=== PATIENT | female | born 1975 | race Caucasian/White ===

== ENCOUNTER 2024-01-30 22:25 | Emergency (ER) | payer OTHER ==
[2024-01-30] MEDS: Benzonatate 100 MG Cap PO ONE (22:56)
[2024-01-30 23:24] LABS: BASOPHILS ABSOLUTE AUTO 0.07 K/uL (0.02-0.10); BASOPHILS PERCENT AUTO 0.6 % (0.0-0.5); EOSINOPHILS ABSOLUTE AUTO 0.12 K/uL (0.04-0.40); HEMATOCRIT 42.6 % (37.0-47.0); HEMOGLOBIN 14.8 g/dL (11.5-16.5); LYMPHOCYTES ABSOLUTE AUTO 1.96 K/uL (1.50-4.00); MEAN CORPUSCULAR HEMOGLOBIN 32.9 pg (27.0-32.0); MEAN CORPUSCULAR HGB CONC 34.7 g/dL (31.0-35.0); MEAN CORPUSCULAR VOLUME 95 fL (76-96); MEAN PLATELET VOLUME 10.1 fL (6.0-10.0); MONOCYTES PERCENT AUTO 13.9 % (3.0-10.0); NEUTROPHILS ABSOLUTE AUTO 7.77 K/uL (2.00-7.50); NEUTROPHILS PERCENT AUTO 67.5 % (45.0-70.0); PLATELET COUNT,PLT 285 K/uL (150-500); RED CELL DISTRIBUTION WIDTH 12.8 % (11.0-16.0); WHITE BLOOD CELL COUNT,WBC 11.5 K/uL (4.0-11.0)
[2024-01-30 23:29] LABS: ANION GAP 13.7 mmol/L (5.0-15.0); BUN/CREATININE RATIO 6.9 (6-25); CALCIUM 8.5 mg/dL (8.5-10.1); CARBON DIOXIDE,CO2 27.1 mmol/L (21.0-32.0); CREATININE 1.16 mg/dL (0.55-1.02); EST CRCL DRUG DOSING (CG) 52.79 mL/min; POTASSIUM,K 3.8 mmol/L (3.5-5.1)
[2024-01-30] MEDS ORDERED: Oseltamivir 75 MG Cap ONE (23:45)
[2024-01-30] MEDS ORDERED: Benzonatate 100 MG Cap ONE (23:45)
[2024-01-30 23:56] LABS: INFLUENZA A NAA POSITIVE (NEGATIVE); INFLUENZA B NAA NEGATIVE (NEGATIVE); RESPIRATORY SYNCYTIAL VIR NAA NEGATIVE (NEGATIVE)
[2024-01-31 00:05] LABS: CORONAVIRUS COVID-19 NAA NEGATIVE (NEGATIVE)
[2024-01-31] MEDS: Sodium Chloride 0.9% 1,000 ML IV ONE (00:23)
[2024-01-31] MEDS: Benzonatate 100 MG Cap ONE (00:26)
[2024-01-31] MEDS: Oseltamivir 75 MG Cap PO ONE (00:49)
[2024-01-31 01:04] VITALS: BP 142/76; PULSE 93
== END 2024-01-31 01:40 | disposition home or self-care (01) ==
LOC: LB.ED 22:25
DX: J10.1 Influenza due to other identified influenza virus with other respiratory manifestations (principal); I10 Essential (primary) hypertension; Z79.899 Other long term (current) drug therapy
CPT/HCPCS: 0241U; 36415; 71045; 80048; 85025; 85651; 96360; 99283-25; A9270-GY; J7030